=== PATIENT | male | born 1960 | race Caucasian/White ===

== ENCOUNTER 2019-07-30 14:37 | Outpatient (REF) | payer BC, SELFPAY ==
[2019-07-30 21:36] LABS: ALT 43 U/L (16-63); AST 31 U/L (15-37); Albumin 3.9 g/dL (3.4-5.0); Alkaline Phosphatase 55 U/L (46-116); Anion Gap 9.8 mmol/L (3-11); BUN 14 mg/dL (7-18); CO2 28.2 mmol/L (21.0-32.0); CREATININE 0.95 mg/dL (0.70-1.30); Calcium 8.8 mg/dL (8.5-10.1); Chloride 109 mmol/L (98-107); Glucose 93 mg/dL (70-100); Potassium 4.6 mmol/L (3.5-5.1); Sodium 147 mmol/L (136-145); Total Protein 6.9 g/dL (6.4-8.2)
[2019-07-30 22:11] LABS: Calculated LDL 109 mg/dL; Cholesterol 195 mg/dL (50-200); HDL Cholesterol 75 mg/dL (40-60); Triglyceride 55 mg/dL (30-150)
[2019-08-03 10:31] LABS: PSA, Screening 0.3 ng/ml (0-3.5)
== END 2019-07-30 14:57 ==
LOC: NCHCN 14:37
PROVIDERS: Visit Provider Nurse Practitioner Family
DX: E78.2 Mixed hyperlipidemia (principal); I10 Essential (primary) hypertension; Z12.5 Encounter for screening for malignant neoplasm of prostate
CPT/HCPCS: 80053; 80061; 84153

== ENCOUNTER 2020-07-05 08:07 | Outpatient (REF) | payer OTHER, SELFPAY ==
[2020-07-05 22:12] LABS: ALT 42 U/L (16-63); AST 19 U/L (15-37); Alkaline Phosphatase 51 U/L (46-116); Anion Gap 5.9 mmol/L (3-11); BUN 17 mg/dL (7-18); Bilirubin, Total 0.7 mg/dL (0.2-1.0); CO2 30.1 mmol/L (21.0-32.0); CREATININE 1.07 mg/dL (0.70-1.30); Calculated LDL 132 mg/dL (<100); Chloride 102 mmol/L (98-107); Cholesterol 225 mg/dL (<200); Glucose 110 mg/dL (74-106); HDL Cholesterol 76 mg/dL (40-60); Potassium 4.4 mmol/L (3.5-5.1); Sodium 138 mmol/L (136-145); Triglyceride 86 mg/dL (<150)
[2020-07-07 04:56] LABS: Vitamin D 25 Total 24.3 ng/ml (30-100)
[2020-07-07 11:08] LABS: Hepatitis C Ab w Rflx HCV PCR Negative (Negative)
== END 2020-07-05 08:27 ==
LOC: NCHCN 08:07
PROVIDERS: Visit Provider Nurse Practitioner Family
DX: I10 Essential (primary) hypertension (principal); E78.2 Mixed hyperlipidemia; E55.9 Vitamin D deficiency, unspecified; Z11.59 Encounter for screening for other viral diseases
CPT/HCPCS: 80053; 80061; 82306; 86803

== ENCOUNTER 2020-07-15 20:54 | Outpatient (REF) | payer OTHER, SELFPAY ==
[2020-07-15 21:21] LABS: TSH (W/Ref FT4) 2.76 uIU/mL (0.36-3.74)
[2020-07-15 21:22] LABS: Hemoglobin A1C 5.6 % (<5.7)
== END 2020-07-15 21:14 ==
LOC: NCHCN 20:54
PROVIDERS: Visit Provider Nurse Practitioner Family
DX: I10 Essential (primary) hypertension (principal); E78.2 Mixed hyperlipidemia; R73.01 Impaired fasting glucose; I48.0 Paroxysmal atrial fibrillation
CPT/HCPCS: 83036; 84443

== ENCOUNTER 2021-02-03 08:33 | Outpatient (REF) | payer OTHER, SELFPAY ==
[2021-02-03 13:56] LABS: Calculated LDL 96 mg/dL (<100); Cholesterol 187 mg/dL (<200); Glucose 99 mg/dL (74-106); HDL Cholesterol 81 mg/dL (40-60); Triglyceride 53 mg/dL (<150)
== END 2021-02-03 08:34 | disposition home or self-care (01) ==
LOC: NCHCN 08:33
PROVIDERS: Visit Provider Nurse Practitioner Family
DX: R73.01 Impaired fasting glucose (principal); E78.2 Mixed hyperlipidemia
CPT/HCPCS: 80061; 82947

== ENCOUNTER 2021-06-02 14:41 | Outpatient (REF) | payer OTHER, SELFPAY ==
[2021-06-02 21:12] LABS: Anion Gap 7.8 mmol/L (3-11); BUN 18 mg/dL (7-18); CO2 27.2 mmol/L (21.0-32.0); Calcium 8.9 mg/dL (8.5-10.1); Chloride 103 mmol/L (98-107); Glucose 89 mg/dL (74-106); Potassium 4.2 mmol/L (3.5-5.1); Sodium 138 mmol/L (136-145)
[2021-06-05 09:28] LABS: PSA, Screening 0.4 ng/mL (0.0-3.5)
== END 2021-06-02 14:42 | disposition home or self-care (01) ==
LOC: NCHCN 14:41
PROVIDERS: Visit Provider Nurse Practitioner Family
DX: Z12.5 Encounter for screening for malignant neoplasm of prostate (principal); Z00.00 Encounter for general adult medical examination without abnormal findings; I10 Essential (primary) hypertension
CPT/HCPCS: 80048; 84153

== ENCOUNTER 2022-07-03 20:38 | Outpatient (REF) | payer OTHER, SELFPAY ==
[2022-07-03 22:16] LABS: ALT 41 U/L (16-63); AST 20 U/L (15-37); Albumin 3.9 g/dL (3.4-5.0); Alkaline Phosphatase 62 U/L (46-116); BUN 22 mg/dL (7-18); Bilirubin, Total 0.4 mg/dL (0.2-1.0); CREATININE 1.1 mg/dL (0.70-1.30); Calculated LDL 115 mg/dL (<100); Chloride 101 mmol/L (98-107); Cholesterol 207 mg/dL (<200); Estimated GFR 76.85 (mL/min/1.73m2); Glucose 93 mg/dL (74-106); HDL Cholesterol 76 mg/dL (40-60); Potassium 4.4 mmol/L (3.5-5.1); Sodium 137 mmol/L (136-145); Total Protein 7.6 g/dL (6.4-8.2); Triglyceride 82 mg/dL (<150)
[2022-07-04 18:01] LABS: PSA, Screening 0.4 ng/mL (<=4.5)
== END 2022-07-03 20:39 | disposition home or self-care (01) ==
LOC: NCHCN 20:38
PROVIDERS: Visit Provider Nurse Practitioner Family
DX: I10 Essential (primary) hypertension (principal); Z12.5 Encounter for screening for malignant neoplasm of prostate
CPT/HCPCS: 80053; 80061; 84153

== ENCOUNTER 2023-08-09 14:45 | Outpatient (REF) | payer OTHER, SELFPAY ==
[2023-08-09 14:50] LABS: Anion Gap 9.3 mmol/L (3-11); BUN 18 mg/dL (7-18); CO2 27.7 mmol/L (21.0-32.0); Calcium 9.8 mg/dL (8.5-10.1); Calculated LDL 110 mg/dL (<100); Chloride 101 mmol/L (98-107); Cholesterol 208 mg/dL (<200); Estimated GFR 85.63 (mL/min/1.73m2); Glucose 103 mg/dL (74-106); HDL Cholesterol 89 mg/dL (40-60); Potassium 3.9 mmol/L (3.5-5.1); Sodium 138 mmol/L (136-145); Triglyceride 48 mg/dL (<150)
[2023-08-12 09:54] LABS: PSA, Screening 0.3 ng/mL (<=4.5)
== END 2023-08-09 14:46 | disposition home or self-care (01) ==
LOC: NCHCN 14:45
PROVIDERS: PCP Nurse Practitioner Family; Visit Provider Nurse Practitioner Family
DX: Z00.00 Encounter for general adult medical examination without abnormal findings (principal); Z12.5 Encounter for screening for malignant neoplasm of prostate; E78.2 Mixed hyperlipidemia; I10 Essential (primary) hypertension
CPT/HCPCS: 80048; 80061; 84153

== ENCOUNTER 2023-11-13 09:48 | Outpatient (REF) | payer OTHER, SELFPAY ==
[2023-11-13 15:01] LABS: Calculated LDL 80 mg/dL (<100); Cholesterol 176 mg/dL (<200); HDL Cholesterol 91 mg/dL (40-60); Triglyceride 28 mg/dL (<150)
== END 2023-11-13 09:49 | disposition home or self-care (01) ==
LOC: NCHCN 09:48
PROVIDERS: PCP Nurse Practitioner Family; Visit Provider Nurse Practitioner Family
DX: Z00.00 Encounter for general adult medical examination without abnormal findings (principal); E78.2 Mixed hyperlipidemia; I10 Essential (primary) hypertension
CPT/HCPCS: 80061

== ENCOUNTER 2024-08-17 18:38 | Outpatient (REF) | payer OTHER, SELFPAY ==
[2024-08-17 16:06] LABS: ALT 52 U/L (16-63); AST 33 U/L (15-37); Albumin 3.9 g/dL (3.4-5.0); Alkaline Phosphatase 64 U/L (46-116); Anion Gap 6.5 mmol/L (3-11); BUN 17 mg/dL (7-18); Bilirubin, Total 0.96 mg/dL (0.2-1.0); CO2 30.5 mmol/L (21.0-32.0); Calcium 9.4 mg/dL (8.5-10.1); Calculated LDL 90 mg/dL (<100); Chloride 105 mmol/L (98-107); Cholesterol 191 mg/dL (<200); Glucose 99 mg/dL (74-106); HDL Cholesterol 91 mg/dL (40-60); Potassium 4.6 mmol/L (3.5-5.1); Sodium 142 mmol/L (136-145); Total Protein 7.1 g/dL (6.4-8.2); Triglyceride 52 mg/dL (<150)
[2024-08-17 22:41] LABS: PSA, Screening 0.4 ng/mL (<=4.5)
== END 2024-08-17 18:39 | disposition home or self-care (01) ==
LOC: NCHCN 18:38
PROVIDERS: PCP Nurse Practitioner Family; Visit Provider Nurse Practitioner Family
DX: Z00.00 Encounter for general adult medical examination without abnormal findings (principal)
CPT/HCPCS: 80053; 80061; 84153

== ENCOUNTER 2025-01-19 11:02 | Outpatient (REF) | payer OTHER, SELFPAY ==
[2025-01-19 15:05] LABS: Calculated LDL 49 mg/dL (<100); Cholesterol 135 mg/dL (<200); HDL Cholesterol 78 mg/dL (>or=40); Triglyceride 40 mg/dL (<150)
== END 2025-01-19 11:03 | disposition home or self-care (01) ==
LOC: NCHCN 11:02
PROVIDERS: PCP Nurse Practitioner Family; Visit Provider Nurse Practitioner Family
DX: E78.5 Hyperlipidemia, unspecified (principal)
CPT/HCPCS: 80061

== ENCOUNTER 2025-06-10 16:01 | Outpatient (REF) | payer OTHER, SELFPAY ==
[2025-06-10 15:00] LABS: HCT 42.5 % (40.0-50.0); HGB 14.2 g/dL (13.5-17.5); MCH 31.5 pg (27.0-33.0); MCHC 33.4 % (32.0-36.0); MCV 94 fL (80-95); MPV 10.8 fL (8.0-11.0); Platelet Count 212 10^3/uL (130-400); RBC 4.51 10^6/uL (4.36-5.78); RDW 13.1 % (11.8-14.1); RDW-SD 44.9 fL; WBC 5.41 10^3/uL (4.4-10.8)
[2025-06-10 15:32] LABS: Anion Gap 7.6 mmol/L (3-11); BUN 21 mg/dL (7-18); CO2 31.4 mmol/L (21.0-32.0); Calcium 9.3 mg/dL (8.5-10.1); Chloride 103 mmol/L (98-107); Estimated GFR 95.97 (mL/min/1.73m2); Ferritin 71 ng/mL (26-388); Glucose 129 mg/dL (74-106); Potassium 4.2 mmol/L (3.5-5.1); Sodium 142 mmol/L (136-145); Vitamin B12 388 pg/mL (193-986)
[2025-06-10 15:34] LABS: Folate > 20.0 ng/mL (8.6-20.0)
== END 2025-06-10 16:02 | disposition home or self-care (01) ==
LOC: NCHCN 16:01
PROVIDERS: PCP Nurse Practitioner Family; Visit Provider Nurse Practitioner Family
DX: D64.9 Anemia, unspecified (principal); I10 Essential (primary) hypertension
CPT/HCPCS: 80048; 85027; 82607; 82728; 82746